=== PATIENT | male | born 1930 | race Caucasian/White ===

== ENCOUNTER 2017-04-07 15:20 | Inpatient (IN) | payer OTHER ==
[~2017-04-07] VITALS: Ht 165.1 cm; Wt 60.4 kg
[~2017-04-07 15:20] MED LIST: AMLODIPINE5 MG PO; ASPIRIN ADULT L81 M1; AUGMENTIN 875875 MG PO; CRESTOR20 MG PO; Carafate1 GM/10 ML PO; GAVISCON 80 MG-1 CT1 PO; IRON325 M1 PO; PROTONIX40 MG PO; VITAMIN D; ZITHROMAX250 MG PO
[2017-04-07 15:29] VITALS: BP 101/61
[2017-04-07 15:57] LABS: BASO # 0.1 10*3/uL (0.0-0.1); BASO % 0.6 % (0.0-1.0); EOS # 0.3 10*3/uL (0.0-0.4); EOS % 2.8 % (1.0-4.0); HEMATOCRIT 37.2 % (42.0-52.0); HEMOGLOBIN 12.7 g/dl (14.0-18.0); LYMPH # 1.9 10*3/uL (1.3-4.4); LYMPH % 15.4 % (27.0-41.0); MEAN CELL VOLUME 98.4 fl (80.0-94.0); MEAN CORPUSCULAR HGB 33.6 pg (27.0-31.0); MEAN CORPUSCULAR HGB CONC 34.1 g/dl (33.0-37.0); MEAN PLATELET VOLUME 8.5 fl (9.6-12.3); MONO % 8.5 % (3.0-9.0); NEUT # 8.9 10*3/uL (2.3-7.9); NEUT % 72.1 % (47.0-73.0); PLATELET COUNT AUTOMATED 314 10*3/uL (130-400); RED BLOOD COUNT 3.78 10*6/uL (4.50-5.90); RED CELL DISTRI WIDTH 13.1 % (0-14.5); WHITE BLOOD COUNT 12.3 10*3/uL (4.8-10.8)
[2017-04-07 16:06] LABS: ACT PARTIAL THROMBO TIME 22.6 SECONDS (20.8-31.5)
--- NOTE | 2017-04-07 16:10 | NUR ---
PT TO CT VIA STRETCHER. IV FLUIDS INFUSING.
[2017-04-07 16:14] LABS: ALBUMIN 3.3 gm/dl (3.1-4.5); ALKALINE PHOSPHATASE 92 U/L (45-117); BUN 24 mg/dl (7-24); CHLORIDE 100 mmol/L (98-107); CREATININE 1.04 mg/dL (0.70-1.30); POTASSIUM 4.5 mmol/L (3.5-5.1); SGOT/AST 19 IU/L (3-35); SGPT/ALT 28 U/L (12-78); SODIUM 133 mmol/L (136-145); TOTAL PROTEIN 6.6 gm/dL (6.4-8.2); TROPONIN I < 0.015 ng/ml (<0.045)
--- NOTE | 2017-04-07 16:25 | NUR ---
PT RETURNED FROM CT VIA BED ACCOMPANIED PER CT STAFF. NO C/O VOICED AT THIS TIME.
--- NOTE | 2017-04-07 17:30 | NUR ---
PT AMBUALTED TO BATHROOM WITHOUT DIFFICULTY. DENIES DIZZINESS OR LIGHTHEADEDNESS AT THIS TIME.
[2017-04-07 18:45] VITALS: BP 139/68
--- NOTE | 2017-04-07 18:45 | NUR ---
A 86, admitted to , under the services of WINSTON Chowdary DO with a diagnosis of SYNCOPE. Chief complaint is DIZZINESS AT HOME. Patient arrived via bed from ER. Monitor applied. Initial assessment completed. Vital signs taken and recorded. WINSTON CHOWDARY DO notified of admission to the unit. Orders received. See assessment for past medical history, medications and allergies. Patient and/or family oriented to unit. [facility]. Clothing/patient valuable form completed. ROSEMARIE AL
--- NOTE | 2017-04-07 19:08 | NUR ---
PT UNSURE OF HIS HOME MEDS. STATES HE GETS THEM FROM [place]. SON IN ROOM SAYS THAT HE WILL CALL IN LATER WITH THE NAMES OF HOME MEDS
[2017-04-07 20:00] VITALS: BP 134/78
--- NOTE | 2017-04-07 20:40 | NUR ---
PATIENT RESTING QUIETLY IN BED. STATES FEELS GOOD, BETTER THAN WHEN HE FIRST GOT HERE. HE IS PLEASANT/COOPERATIVE WITH CARE. CALL LIGHT IS IN REACH. WILL MONITOR.
[2017-04-07 22:01] LABS: BILIRUBIN NEGATIVE (NEGATIVE); BLOOD NEGATIVE (NEGATIVE); CLARITY CLEAR (CLEAR); COLOR YELLOW (YELLOW); GLUCOSE NEGATIVE (NEGATIVE); KETONE NEGATIVE (NEGATIVE); LEUKO ESTERASE NEGATIVE (NEGATIVE); NITRITE NEGATIVE (NEGATIVE); SPECIFIC GRAVITY <= 1.005 (1.005-1.030); UROBILINOGEN 0.2 E.U./dl (0.2-1.0)
[2017-04-07 22:28] LABS: RBC 0-2 rbc/hpf (0-2)
--- NOTE | 2017-04-07 23:00 | NUR ---
ORTHOS DONE AT THIS TIME. RESULTS ARE NEGATIVE. PATIENT IS ASYMPTOMATIC AND STATES HE FEELS GOOD.
[2017-04-08] VITALS: BP 120/77
--- NOTE | 2017-04-08 01:56 | NUR ---
PATIENT SLEEPING QUIETLY IN BED. NO SXS OF DISTRESS. CALL [facility] IN REACH.
--- NOTE | 2017-04-08 02:37 | NUR ---
24 HOUR CHART CHECK COMPLETE
--- NOTE | 2017-04-08 03:32 | NUR ---
SLEEPING, NO SXS OF DISTRESS
[2017-04-08 07:04] LABS: BASO # 0.1 10*3/uL (0.0-0.1); BASO % 0.8 % (0.0-1.0); EOS # 0.2 10*3/uL (0.0-0.4); EOS % 2.4 % (1.0-4.0); HEMATOCRIT 36.8 % (42.0-52.0); HEMOGLOBIN 12.7 g/dl (14.0-18.0); LYMPH % 25.1 % (27.0-41.0); MEAN CELL VOLUME 96.3 fl (80.0-94.0); MEAN CORPUSCULAR HGB 33.2 pg (27.0-31.0); MEAN CORPUSCULAR HGB CONC 34.5 g/dl (33.0-37.0); MEAN PLATELET VOLUME 8.7 fl (9.6-12.3); MONO # 0.7 10*3/uL (0.1-1.0); MONO % 9.4 % (3.0-9.0); NEUT # 4.9 10*3/uL (2.3-7.9); NEUT % 61.9 % (47.0-73.0); PLATELET COUNT AUTOMATED 309 10*3/uL (130-400); RED BLOOD COUNT 3.82 10*6/uL (4.50-5.90); WHITE BLOOD COUNT 7.9 10*3/uL (4.8-10.8)
[2017-04-08 07:25] LABS: BUN 29 mg/dl (7-24); CHLORIDE 105 mmol/L (98-107); CREATININE 0.83 mg/dL (0.70-1.30); POTASSIUM 4.5 mmol/L (3.5-5.1); SODIUM 137 mmol/L (136-145)
[2017-04-08 07:30] LABS: CHOLESTEROL 116 mg/dL (<200); FREE T4 1.02 ng/dl (0.76-1.46); HDL CHOLESTEROL 43 mg/dl (40-60); LDL CHOLESTEROL 40 mg/dL (9-159); PHOSPHOROUS 2.4 mg/dL (2.5-4.9); TRIGLYCERIDES 166 mg/dl (<150); VLDL CHOLESTEROL 33 mg/dL (6-40)
[2017-04-08 08:00] VITALS: BP 126/72
--- NOTE | 2017-04-08 08:55 | NUR ---
FAXED RELEASE OF INFORMATION TO THE [facility] FOR [facility] MED LIST.
--- NOTE | 2017-04-08 09:00 | NUR ---
Hand Profiler in to talk to patient. Patient states lives at home with alone. There are few steps in the home. Physician: david Pharmacy: co pharmacy Home health services: none Patient's level of ADLs: INDEPENDENT Patient has working utilities: all working DME: none Follow-up physician's appointment after d/c: will be made by hospitalist nurse director upon discharge Does patient want to access PORTAL?: no Discharge plan discussed with patient, patient lives at home alone, states he is independent in adls and ambulation, drives, also states his son and daughter live close to him and visit on a daily basis, patient states he will be going home and denies any home needs. DEJAN AVENDANO
--- NOTE | 2017-04-08 09:21 | NUR ---
Patient approached for Occupational Therapy evaluation this am. Patient reports that he has been ambulating to the bathroom independently, performing dressing, toileting, feeding,etc at independent level. He says he has not had any syncope and does not feel he needs an OT evaluation. D/C OT referral after screen this date. Thank you for this referral. Lesly Banks OTR/l
--- NOTE | 2017-04-08 09:22 | NUR ---
PHYSICAL THERAPY PAtient approached for PT evaluation. PAtient reports he is 100 % better with mobility tasks. PAtient reports (I) ambulation multiple times to restroom from window bed and (I) throughout room AD TIAN. No PT needs. D/c PT as patient reports he has no needs. Thank you for this referral. Essie Cohen,PT
[2017-04-08 12:00] VITALS: BP 113/59
--- NOTE | 2017-04-08 13:00 | NUR ---
[facility] INFORMATION FOR PATIENTS HOME MED LIST.
--- NOTE | 2017-04-08 13:51 | NUR ---
[facility]
[2017-04-08] MEDS ORDERED: A THRU Z ADVAN1 EACH PO (14:56)
[2017-04-08] MEDS ORDERED: LIPITOR80 MG PO (14:57)
--- NOTE | 2017-04-08 16:22 | NUR ---
PATIENTS FAMILY INFOMRED BY DR. CROWELL THAT HIS RECORDS WOULD BE SENT TO HIS PCP.
--- NOTE | 2017-04-08 16:22 | NUR ---
SPOKE WITH DR. CROWELL WHO STATED TO TREAT THE DISCHARGE A AGAINST MEDICAL ADVICE D/C.
--- NOTE | 2017-04-08 16:26 | NUR ---
PT SIGNED OUT AGAINST MEDICAL ADVICE. 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 PT TRANSPORTED OUT VIA WHEELCHAIR TO PRIVATE CAR.
== END 2017-04-08 16:26 | disposition left against medical advice (07) | DRG 315 ==
LOC: ED 15:20 → EDHOLD 17:15 → 5E 17:15
PROVIDERS: Physician Assistant; Student in an Organized Health Care Education/Training Program; ADMIT Emergency Medicine
DX: I95.9 Hypotension, unspecified (principal); E87.1 Hypo-osmolality and hyponatremia; E83.39 Other disorders of phosphorus metabolism; D53.9 Nutritional anemia, unspecified; E83.51 Hypocalcemia; D72.829 Elevated white blood cell count, unspecified; K57.90 Diverticulosis of intestine, part unspecified, without perforation or abscess without bleeding; I10 Essential (primary) hypertension; D72.810 Lymphocytopenia; R73.9 Hyperglycemia, unspecified; E78.5 Hyperlipidemia, unspecified; Z96.653 Presence of artificial knee joint, bilateral; Z87.891 Personal history of nicotine dependence; Z85.53 Personal history of malignant neoplasm of renal pelvis; Z82.49 Family history of ischemic heart disease and other diseases of the circulatory system; Z83.3 Family history of diabetes mellitus; Z79.82 Long term (current) use of aspirin; Z79.899 Other long term (current) drug therapy

== ENCOUNTER → 2017-06-10 | Outpatient (CLI) | payer OTHER ==
[~2017-06-10] MED LIST changes: +A THRU Z ADVAN1 EACH PO; +LIPITOR80 MG PO
[2017-06-10 15:32] LABS: CREATININE 1.11 mg/dL (0.70-1.30)
== END | disposition home or self-care (01) ==
LOC: LAB 00:28 → CT 17:00
PROVIDERS: Urology
DX: I25.10 Atherosclerotic heart disease of native coronary artery without angina pectoris (principal); J92.9 Pleural plaque without asbestos; I70.1 Atherosclerosis of renal artery; K44.9 Diaphragmatic hernia without obstruction or gangrene; I70.8 Atherosclerosis of other arteries; J98.4 Other disorders of lung; I10 Essential (primary) hypertension; R91.1 Solitary pulmonary nodule; Z85.528 Personal history of other malignant neoplasm of kidney; G95.89 Other specified diseases of spinal cord

== ENCOUNTER → 2018-07-05 | Outpatient (CLI) | payer OTHER ==
[2018-07-05 08:56] LABS: BASO % 0.4 % (0.0-1.0); EOS # 0.3 10*3/uL (0.0-0.4); EOS % 2.9 % (1.0-4.0); HEMOGLOBIN 15.3 g/dl (14.0-18.0); LYMPH # 1.5 10*3/uL (1.3-4.4); LYMPH % 13.5 % (27.0-41.0); MEAN CELL VOLUME 96.5 fl (80.0-94.0); MEAN CORPUSCULAR HGB 33.6 pg (27.0-31.0); MEAN CORPUSCULAR HGB CONC 34.8 g/dl (33.0-37.0); MEAN PLATELET VOLUME 8.9 fl (9.6-12.3); MONO # 0.9 10*3/uL (0.1-1.0); MONO % 8.4 % (3.0-9.0); NEUT # 8.2 10*3/uL (2.3-7.9); NEUT % 74.3 % (47.0-73.0); PLATELET COUNT AUTOMATED 346 10*3/uL (130-400); RED BLOOD COUNT 4.56 10*6/uL (4.50-5.90); RED CELL DISTRI WIDTH 12.8 % (0-14.5)
[2018-07-05 09:29] LABS: ALBUMIN 3.9 gm/dl (3.1-4.5); BILIRUBIN, DIRECT 0.1 mg/dL (0.0-0.2); BUN 12 mg/dl (7-24); CHLORIDE 101 mmol/L (98-107); POTASSIUM 4.4 mmol/L (3.5-5.1); SODIUM 136 mmol/L (136-145)
[2018-07-05 09:35] LABS: ALKALINE PHOSPHATASE 116 U/L (45-117); CREATININE 0.91 mg/dL (0.70-1.30); SGOT/AST 27 IU/L (3-35); SGPT/ALT 30 U/L (12-78); TOTAL PROTEIN 7.8 gm/dL (6.4-8.2)
== END | disposition home or self-care (01) ==
LOC: LAB 08:05
PROVIDERS: Urology
DX: Z12.5 Encounter for screening for malignant neoplasm of prostate (principal); N28.9 Disorder of kidney and ureter, unspecified; N32.0 Bladder-neck obstruction

== ENCOUNTER → 2018-07-07 | Outpatient (CLI) | payer OTHER | END | disposition home or self-care (01) | LOC: LAB 00:55 → CT 08:00 → LAB 08:00 | DX: K57.30 Diverticulosis of large intestine without perforation or abscess without bleeding (principal); K44.9 Diaphragmatic hernia without obstruction or gangrene; K40.90 Unilateral inguinal hernia, without obstruction or gangrene, not specified as recurrent; J98.11 Atelectasis; I25.10 Atherosclerotic heart disease of native coronary artery without angina pectoris ==

== ENCOUNTER 2018-09-18 21:15 | Inpatient (IN) | payer OTHER ==
[~2018-09-18] VITALS: Ht 165.1 cm; Wt 60.5 kg
--- NOTE | ~2018-09-18 | EKG ---
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
--- NOTE | ~2018-09-18 | EKG ---
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
--- NOTE | ~2018-09-18 | EKG ---
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
[2018-09-18 21:21] VITALS: BP 137/83
[2018-09-18 21:36] LABS: BASO # 0.1 10*3/uL (0.0-0.1); BASO % 0.8 % (0.0-1.0); EOS # 0.5 10*3/uL (0.0-0.4); EOS % 6.6 % (1.0-4.0); HEMATOCRIT 37.5 % (42.0-52.0); HEMOGLOBIN 13.4 g/dl (14.0-18.0); LYMPH # 2.3 10*3/uL (1.3-4.4); LYMPH % 32.5 % (27.0-41.0); MEAN CELL VOLUME 95.2 fl (80.0-94.0); MEAN CORPUSCULAR HGB CONC 35.7 g/dl (33.0-37.0); MEAN PLATELET VOLUME 8.4 fl (9.6-12.3); MONO # 0.8 10*3/uL (0.1-1.0); MONO % 11.6 % (3.0-9.0); NEUT # 3.4 10*3/uL (2.3-7.9); NEUT % 48.2 % (47.0-73.0); PLATELET COUNT AUTOMATED 266 10*3/uL (130-400); RED BLOOD COUNT 3.94 10*6/uL (4.50-5.90); RED CELL DISTRI WIDTH 12.6 % (0-14.5); WHITE BLOOD COUNT 7.1 10*3/uL (4.8-10.8)
[2018-09-18 21:46] LABS: ACT PARTIAL THROMBO TIME 24.3 SECONDS (20.0-32.1); INTERNATIONAL NORM RATIO 0.9 (2.0-3.5)
[2018-09-18 21:53] LABS: ALBUMIN 3.8 gm/dl (3.1-4.5); ALKALINE PHOSPHATASE 98 U/L (45-117); BUN 10 mg/dl (7-24); CHLORIDE 100 mmol/L (98-107); CREATININE 0.94 mg/dL (0.70-1.30); POTASSIUM 3.8 mmol/L (3.5-5.1); SGOT/AST 30 IU/L (3-35); SGPT/ALT 29 U/L (12-78); SODIUM 133 mmol/L (136-145); TOTAL PROTEIN 6.8 gm/dL (6.4-8.2)
[2018-09-18 21:55] LABS: TROPONIN I < 0.015 ng/ml (<0.045)
[2018-09-18 22:31] VITALS: BP 162/75
--- NOTE | 2018-09-18 22:39 | NUR ---
PT RESTING IN ROOM NO COMPLAINTS VOICED SON IN ROOM CALL LIGHT IN REACH
[2018-09-18 22:43] LABS: BILIRUBIN NEGATIVE (NEGATIVE); BLOOD NEGATIVE (NEGATIVE); CLARITY CLEAR (CLEAR); COLOR STRAW (YELLOW); GLUCOSE NEGATIVE (NEGATIVE); KETONE NEGATIVE (NEGATIVE); LEUKO ESTERASE NEGATIVE (NEGATIVE); NITRITE NEGATIVE (NEGATIVE); SPECIFIC GRAVITY <= 1.005 (1.005-1.030); UROBILINOGEN 0.2 E.U./dl (0.2-1.0)
[2018-09-18 22:54] LABS: RBC 0-2 rbc/hpf (0-2)
[2018-09-18 22:56] LABS: WBC 0-2 wbc/hpf (0-5)
[2018-09-18 22:57] LABS: EPITHELIAL CELLS 0-2
--- NOTE | 2018-09-18 23:07 | NUR ---
PT PROVIDED URINAL NO DISTRESS DENIES ANY CHEST PAIN AT THIS TIME SON IN ROOM CALL LIGHT IN REACH
--- NOTE | 2018-09-19 00:25 | NUR ---
PT RESTING IN ROOM CALL LIGHT IN REACH SON AT BEDSIDE
[2018-09-19 01:05] VITALS: BP 158/62
[2018-09-19 01:15] VITALS: BP 137/72
--- NOTE | 2018-09-19 01:15 | NUR ---
A 88, admitted to 5E, under the services of NINI Frank DO with a diagnosis of CHEST PAIN. Chief complaint is CHEST PAIN. Patient arrived via stretcher from ER. Monitor applied. Initial assessment completed. Vital signs taken and recorded. NINI FRANK DO notified of admission to the unit. Orders received. See assessment for past medical history, medications and allergies. Patient and/or family oriented to unit. [facility] visitation policy reviewed. Clothing/patient valuable form completed. KASIE JESSICA
--- NOTE | 2018-09-19 01:40 | NUR ---
PATIENT HOME MEDICATIONS NEED VERIFIED BY [facility] [place].
--- NOTE | 2018-09-19 02:35 | NUR ---
DR MARTIN CALLED TO VERIFY THAT PATIENT IS A DNR-CC, WITH PAPERS SIGNED AND POA-LIVING WILL ON FILE.
--- NOTE | 2018-09-19 04:04 | NUR ---
DR MARTIN RETURNED CALL, HOLD 4 AM DOSE OF [facility], PHARMACY TO [facility].
--- NOTE | 2018-09-19 04:49 | NUR ---
PATIENT RESTING WITH EYES CLOSED AT THIS TIME. RESPIRATIONS EASY AND UNLABORED ON ROOM AIR. BED IN LOWEST POSITION AND CALL [facility]RIOS WITHIN REACH.
[2018-09-19 08:00] VITALS: BP 126/82
--- NOTE | 2018-09-19 11:29 | NUR ---
Discharge instructions reviewed with patient/family. Patient receptive and verbalizes understanding. Follow-up care arranged. Written instructions given to patient/family. IV site removed. Pt denied trasnport to lobby, accompanied by sons. MANUEL HUANG
== END 2018-09-19 11:29 | disposition home or self-care (01) | DRG 206 ==
LOC: ED 21:15 → EDHOLD 23:49 → 5E 09-19 00:23
PROVIDERS: Emergency Medicine; Nurse Practitioner Family; ADMIT Internal Medicine
DX: M94.0 Chondrocostal junction syndrome [Tietze] (principal); E87.1 Hypo-osmolality and hyponatremia; D64.9 Anemia, unspecified; R00.1 Bradycardia, unspecified; E78.5 Hyperlipidemia, unspecified; K29.70 Gastritis, unspecified, without bleeding; Z66 Do not resuscitate; Z51.5 Encounter for palliative care; I10 Essential (primary) hypertension; K57.90 Diverticulosis of intestine, part unspecified, without perforation or abscess without bleeding; Z96.653 Presence of artificial knee joint, bilateral; Z87.891 Personal history of nicotine dependence; Z82.49 Family history of ischemic heart disease and other diseases of the circulatory system; Z86.010 Personal history of colon polyps; Z83.3 Family history of diabetes mellitus; Z85.048 Personal history of other malignant neoplasm of rectum, rectosigmoid junction, and anus; Z79.899 Other long term (current) drug therapy; Z82.3 Family history of stroke

== ENCOUNTER → 2019-01-13 | Outpatient (CLI) | payer OTHER ==
[2019-01-13 11:11] LABS: BILIRUBIN NEGATIVE (NEGATIVE); BLOOD NEGATIVE (NEGATIVE); CLARITY CLEAR (CLEAR); COLOR YELLOW (YELLOW); GLUCOSE NEGATIVE (NEGATIVE); KETONE NEGATIVE (NEGATIVE); LEUKO ESTERASE NEGATIVE (NEGATIVE); NITRITE NEGATIVE (NEGATIVE); SPECIFIC GRAVITY <= 1.005 (1.005-1.030); UROBILINOGEN 0.2 E.U./dl (0.2-1.0)
[2019-01-13 11:26] LABS: EPITHELIAL CELLS 0-2; RBC 0-2 rbc/hpf (0-2); WBC 0-2 wbc/hpf (0-5)
[2019-01-14 09:05] LABS: PROSTATE SPECIFIC AG FREE 0.34 ng/mL; PROSTATE SPECIFIC AG, SERUM 1.2 ng/mL (0.0-4.0)
== END | disposition home or self-care (01) ==
LOC: LAB 10:13
PROVIDERS: Urology
DX: N28.9 Disorder of kidney and ureter, unspecified (principal); R97.20 Elevated prostate specific antigen [PSA]

== ENCOUNTER → 2020-01-12 | Outpatient (CLI) | payer OTHER ==
[2020-01-12 08:06] LABS: BUN 9 mg/dl (7-24); CREATININE 0.97 mg/dL (0.70-1.30)
[2020-01-12 10:45] LABS: BILIRUBIN NEGATIVE; CLARITY CLEAR (CLEAR); COLOR YELLOW (YELLOW); GLUCOSE NEGATIVE
[2020-01-12 10:46] LABS: BLOOD NEGATIVE (NEGATIVE); EPITHELIAL CELLS 0-2; KETONE NEGATIVE; LEUKO ESTERASE NEGATIVE (NEGATIVE); NITRITE NEGATIVE (NEGATIVE); RBC 0-2 rbc/hpf (0-2); SPECIFIC GRAVITY 1.025 (1.001-1.030); WBC 0-2 wbc/hpf (0-5)
[2020-01-13 13:09] LABS: PROSTATE SPECIFIC AG FREE 0.33 ng/mL; PROSTATE SPECIFIC AG, SERUM 1.2 ng/mL (0.0-4.0)
== END | disposition home or self-care (01) ==
LOC: LAB 02:51 → CT 02:51
PROVIDERS: ATTEND Urology
DX: N28.1 Cyst of kidney, acquired (principal); K57.30 Diverticulosis of large intestine without perforation or abscess without bleeding; K40.90 Unilateral inguinal hernia, without obstruction or gangrene, not specified as recurrent; N28.9 Disorder of kidney and ureter, unspecified

== ENCOUNTER 2020-06-14 18:34 | Emergency (ER) | payer OTHER ==
[~2020-06-14] VITALS: Wt 56.7 kg
[2020-06-14] MEDS ORDERED: CEPHALEXIN500 M1 PO (21:02)
== END 2020-06-14 21:40 | disposition home or self-care (01) ==
LOC: ED 18:34
DX: S01.01XA Laceration without foreign body of scalp, initial encounter (principal); I10 Essential (primary) hypertension; E78.00 Pure hypercholesterolemia, unspecified; M19.90 Unspecified osteoarthritis, unspecified site; Z79.899 Other long term (current) drug therapy; Z96.653 Presence of artificial knee joint, bilateral; Z87.891 Personal history of nicotine dependence; W11.XXXA Fall on and from ladder, initial encounter; Y93.89 Activity, other specified; Y92.008 Other place in unspecified non-institutional (private) residence as the place of occurrence of the external cause; Y99.8 Other external cause status

== ENCOUNTER 2021-01-08 14:50 | Emergency (ER) | payer OTHER ==
[~2021-01-08 14:50] MED LIST changes: +CEPHALEXIN500 M1 PO
== END 2021-01-08 17:04 | disposition home or self-care (01) ==
LOC: ED 14:50
DX: Z04.71 Encounter for examination and observation following alleged adult physical abuse (principal); Z79.899 Other long term (current) drug therapy; Z87.891 Personal history of nicotine dependence; Y08.89XA Assault by other specified means, initial encounter; Y93.89 Activity, other specified; Y92.89 Other specified places as the place of occurrence of the external cause; Y99.8 Other external cause status